=== PATIENT | female | born 1955 | race Caucasian/White ===

== ENCOUNTER 2016-07-23 19:20 | Emergency (ER) | payer OTHER ==
[~2016-07-23] VITALS: Ht 165.1 cm; Wt 64.0 kg
[~2016-07-23 19:20] MED LIST: NO DAILY MEDS; PROP40TA7 PO
--- OUTSIDE RECORDS SUMMARY | 2016-07-23 19:23 | XMS REPORT | Continuity of Care Document ---
Author Author [facility] Organization [facility] Address Unknown Phone Unavailable Care Team Providers Care Binder Operator Name Role Phone DAYANA QUINTERO MD Primary Care Physician [phone] Insurance Providers Payer Name Policy Number Subscriber Name Relationship [employer] [id number] Terrance Pak 19 Self Advance Directives Directive Response Recorded Date/Time Advanced Directives Type None 10/17/13 8:00am Ordered Resuscitation Status Full Code 10/17/13 6:17am Resuscitation Documents on File No 10/17/13 8:00am Chief Complaint and Reason for Visit Chief Complaint DEHDRATION,UTI,N/V Reason for Visit UTI (urinary tract infection) Vomiting Dehydration Bandemia Sepsis Problems Medical Problems Problem Onset Date Status UTI (urinary tract infection) Unknown Active Vomiting Unknown Active Dehydration Unknown Active Bandemia Unknown Active Sepsis Unknown Active Medications Medication Dose Route Sig Days/Qty Instructions Order Date Discontinued Date Status Multivitamins 1 Tab PO DAILY 05/10/08 Active Ciprofloxacin Hcl 500 Mg PO TWICE A DAY 14 Qty 10/18/13 Active Promethazine Hcl 25 Mg PO Every 6 Hours PRN NAUSEA 20 Qty 10/18/13 Active Social History Social History Problem Response Recorded Date/Time Smoking Status Never smoker 10/17/2013 8:01am Chewing Tobacco Status No 10/17/2013 3:32am Hx Substance Use No 10/17/2013 3:32am Hx Alcohol Use Y WEEKENDS TO RELAX 10/17/2013 3:32am Has the pt used tobacco in the last 12 months No 10/17/2013 8:01am Hospital Discharge Instructions Instructions: Care Instructions: Reason for Hospitalization: Sepsis Syndrome I was in the hospital because (patient own words): "UTI" Discharge Diet: Clay diet, increase as able; plenty of fluids Discharge Activity: Increase as tolerated Return to work on 10-26-13 Follow Up Appointments: Dr Quintero this week Condition at time of discharge: Good Care Plan Discharge Patient: Goal: Medication compliance Patient Instructions: see patient instructions PERCOCET 5/325MG 1-2 TABS BY MOUTH EVERY FOUR HOURS PRN PAIN, DISP #30 URINARY BLADDER CATHETERS(STRAIGHT/NON LATEX)#50 LEVAQUIN 500MG ONE BY MOUTH DAILY TIMES FIVE DAYS, DISP#5 SCRIPTS NOT CALLED TO PHARMACY-SENT HOME WITH PATIENT Condition at time of discharge: Good Care Plan Discharge Patient: Goal: Pain is contolled Understand discharge plan Patient Instructions: see patient instructions Care Plan Discharge Patient: Goal: Understand discharge plan Patient Instructions: see patient instructions Problem: see problem list Plan of Care Discharge Date 10/18/13 1:55pm Disposition 01 DISCHARGED HOME, SELF-CARE Instructions/Education Provided DI for Urinary Tract Infection (UTI) DI for Sepsis -- Adult Prescriptions See Medications Section Functional Status Query Response Date Recorded Physical Hygiene Self October 18, 2013 1:27pm Disabilities None October 18, 2013 1:27pm Devices Used None October 18, 2013 1:27pm Dressing Self October 18, 2013 1:27pm Ambulation Self October 18, 2013 1:27pm Diet Self October 18, 2013 1:27pm Mental Status Alert Oriented October 18, 2013 1:27pm Disabilities None October 18, 2013 1:27pm Devices Used None October 18, 2013 1:27pm Physical Hygiene Self October 18, 2013 1:27pm Dressing Self October 18, 2013 1:27pm Ambulation Self October 18, 2013 1:27pm Diet Self October 18, 2013 1:27pm Allergies, Adverse Reactions, Alerts Allergen Type Severity Reaction Status Last Updated No Known Drug Allergies Allergy Unknown Active 10/17/13 Immunizations Name Given Type Hx Influenza Vaccination Y FEB 2013 Historical Hx Pneumococcal Vaccination No Historical Hx Influenza Vaccination Y FEB 2013 Historical Vital Signs Acute Vital Signs Vital Response Date/Time Temperature (Fahrenheit) 99.7 deg F (96.8 - 99.1) Temperature (Calculated Celsius) 37.09380 degrees C (36.0 - 37.3) Temperature Source Oral Pulse Rate (adult) 95 bpm (60 - 100) Respiratory Rate 20 breaths/min (10 - 20) O2 Sat by Pulse Oximetry 98 % (90 - 100) Blood Pressure 165/82 mm Hg Blood Pressure Source Automatic Cuff Height 5 ft 7 in Weight 147 lb Body Mass Index 23.0 kg/m^2 Results Test Source Date Result Interp. Ref. Range Comments Alanine Aminotransferase (ALT/SGPT) October 18, 2013 5:37am 63 U/L H 9-52 Albumin October 18, 2013 5:37am 3.4 G/DL L 3.5-5.0 Albumin/Globulin Ratio October 18, 2013 5:37am 1.1 RATIO N 1.1-2.2 Alkaline Phosphatase October 18, 2013 5:37am 141 U/L H 38-126 Amylase Level October 17, 2013 4:40am 62 U/L N 30-110 Anion Gap October 18, 2013 5:37am 10 MEQ/L N 5-15 Aspartate Amino Transf (AST/SGOT) October 18, 2013 5:37am 50 U/L H 14-36 BUN/Creatinine Ratio October 18, 2013 5:37am 7 RATIO N 6-26 Band Neutrophils # October 17, 2013 4:40am 4.5 T/MM3 - Band Neutrophils % October 17, 2013 4:40am 33.0 % DH 0-6 Basophils # (Auto) October 18, 2013 5:37am 0.0 T/MM3 N 0-0.2 Basophils (%) (Auto) October 18, 2013 5:37am 0.2 % N 0-2 Blood Urea Nitrogen October 18, 2013 5:37am 4.0 MG/DL DL 7-17 C. difficile Toxin B Gene (PCR) October 18, 2013 12:45am Negative - If Toxin A is clinically indicated, treat accordingly. Calcium Level October 18, 2013 5:37am 8.8 MG/DL DN 8.4-10.2 Calculated Osmolality October 18, 2013 5:37am 262 MOSM/KG N 261-280 Carbon Dioxide Level October 18, 2013 5:37am 19 MEQ/L L 22-30 Chemistry Specimen Hemolysis October 18, 2013 5:37am < 15 0-25 0-25: No Hemolysis.26-70: Slight Hemolysis - can falsely elevate K and Urine Protein. 71-285: Moderate Hemolysis - can falsely elevate K, Troponin I, CA 19-9, PTH, CSF GLucose, and Urine Protein, and can falsely decrease Phenytoin. 286-999: Gross Hemolysis - can falsely elevate K, Troponin I, CA 19-9, PTH, CSF Glucose, and Urine Protine, and can falsely decrease Phenytoin. Recommend specimen recollection. Chloride Level October 18, 2013 5:37am 108 MEQ/L H 98-107 Creatinine October 18, 2013 5:37am 0.6 MG/DL L 0.7-1.2 Differential Total Cells Counted May 10, 2008 5:20pm 100 % - Eosinophils # (Auto) October 18, 2013 5:37am 0.1 T/MM3 N 0-0.5 Eosinophils (%) (Auto) October 18, 2013 5:37am 0.9 % N 0-4 Globulin October 18, 2013 5:37am 3.0 G/DL N 2.4-3.6 Glomerular Filtration Rate Calc October 18, 2013 5:37am 103 - Glucose Level October 18, 2013 5:37am 116 MG/DL H 65-110 Hematocrit October 18, 2013 5:37am 34.3 % L 36-46 Hemoglobin October 18, 2013 5:37am 11.1 GM/DL DL 12-16 Hypochromasia May 10, 2008 5:20pm 2+ - Icterus Index October 18, 2013 5:37am < 2 0-7 Immature Granulocyte # (Auto) October 18, 2013 5:37am 0.02 T/MM3 N 0.00- 0.03 Immature Granulocyte % (Auto) October 18, 2013 5:37am 0.2 % N 0.0-0.5 Lab Scanned Report September 05, 2011 8:00pm LAB TEST FORM REQUEST [id number] - Lipase October 17, 2013 4:40am 44 U/L N 23-300 Lymphocytes # (Auto) October 18, 2013 5:37am 1.3 T/MM3 N 1-4.8 Lymphocytes # (Manual) October 17, 2013 4:40am 0.4 T/MM3 L 1-4.8 Lymphocytes % (Manual) October 17, 2013 4:40am 3.0 % L 23-45 Lymphocytes (%) (Auto) October 18, 2013 5:37am 15.4 % L 23-45 Mean Corpuscular Hemoglobin October 18, 2013 5:37am 32.0 UUG N 26-34 Mean Corpuscular Hemoglobin Concent October 18, 2013 5:37am 32.4 GM/DL N 31 -37 Mean Corpuscular Volume October 18, 2013 5:37am 98.8 UM3 N 80-100 Mean Platelet Volume October 18, 2013 5:37am 10.3 UM3 N 9.4-12.4 Monocytes # (Auto) October 18, 2013 5:37am 0.9 T/MM3 H 0-0.8 Monocytes # (Manual) May 10, 2008 5:20pm 0.5 T/MM3 N 0-0.8 Monocytes % (Manual) May 10, 2008 5:20pm 4.0 % N 0-9.0 Monocytes (%) (Auto) October 18, 2013 5:37am 10.4 % H 0-9.0 Neutrophils # (Auto) October 18, 2013 5:37am 5.9 T/MM3 N 1.8-7.7 Neutrophils # (Manual) October 17, 2013 4:40am 8.6 T/MM3 H 1.8-7.7 Neutrophils % (Manual) October 17, 2013 4:40am 64.0 % N 33-66 Neutrophils (%) (Auto) October 18, 2013 5:37am 72.9 % H 33-66 Platelet Count October 18, 2013 5:37am 148 T/MM3 N 130-400 Potassium Level October 18, 2013 5:37am 3.9 MEQ/L N 3.6-5 Procalcitonin October 18, 2013 5:37am 42.08 NG/ML PH - PCT </=0.5 ng/mL - sepsis not likely;PCT >0.5 and </=2 ng/mL - sepsis possible; PCT >2 ng/mL - sepsis likely; PCT >/=10 ng/mL - systemic inflammatory response - sepsis or septic shock highly indicated. RDW Standard Deviation October 18, 2013 5:37am 45.4 FL N 36.9-50.2 Red Blood Count October 18, 2013 5:37am 3.47 M/MM3 L 4.00-5.20 Sodium Level October 18, 2013 5:37am 137 MEQ/L N 134-144 Stool for White Cells October 18, 2013 12:45am Positive - Has specimen been collected/obtained? Y Total Bilirubin October 18, 2013 5:37am 0.40 MG/DL N 0.20-1.30 Total Protein October 18, 2013 5:37am 6.4 G/DL N 6.3-8.2 Turbidity October 18, 2013 5:37am < 20 0-20 Urine Bacteria October 17, 2013 4:25am 3+ H - Has specimen been collected/ obtained? Y Urine Bilirubin October 17, 2013 4:25am Negative - Has specimen been collected/obtained? Y Urine Blood October 17, 2013 4:25am 1+ H - Has specimen been collected/ obtained? Y Urine Collection Type October 17, 2013 4:25am Voided-not cc-midstr - Has specimen been collected/obtained? Y Urine Color October 17, 2013 4:25am Yellow - Has specimen been collected /obtained? Y Urine Culture Indicated October 17, 2013 4:25am Cult reflexed &setup - Has specimen been collected/obtained? Y Urine Glucose (UA) October 17, 2013 4:25am Negative - Has specimen been collected/obtained? Y Urine Ketones October 17, 2013 4:25am 1+ H - Has specimen been collected/ obtained? Y Urine Leukocyte Esterase October 17, 2013 4:25am 1+ H - Has specimen been collected/obtained? Y Urine Nitrite October 17, 2013 4:25am Positive H - Has specimen been collected/obtained? Y Urine Protein October 17, 2013 4:25am Trace H - Has specimen been collected/obtained? Y Urine RBC October 17, 2013 4:25am 3-5 /HPF H - Has specimen been collected /obtained? Y Urine Specific [place] October 17, 2013 4:25am 1.010 L - Has specimen been collected/obtained? Y Urine Squamous Epithelial Cells October 17, 2013 4:25am 0-5 - Has specimen been collected/obtained? Y Urine Turbidity October 17, 2013 4:25am Sl cloudy - Has specimen been collected/obtained? Y Urine Urobilinogen October 17, 2013 4:25am 0.2 EU/DL - Has specimen been collected/obtained? Y Urine WBC October 17, 2013 4:25am 10-20 /HPF H - Has specimen been collected/obtained? Y Urine pH October 17, 2013 4:25am 6.5 - Has specimen been collected/ obtained? Y Venous Blood Lactate October 17, 2013 10:37am 2.4 MMOL/L H 0.6-2.2 White Blood Count October 18, 2013 5:37am 8.2 T/MM3 N 4.5-11.0 Blood Culture Blood October 17, 2013 10:37am NO GROWTH AFTER 4 DAYS Urine Culture Urine, Voided-Not Cc-Midstream October 17, 2013 4:55am Escherichia Coli Procedures No known history of procedures. Encounters Encounter Location Date/Time Discharged Inpatient [facility] 10/17/13 6:17am Recent Diagnosis UTI (urinary tract infection) Vomiting Dehydration Bandemia Sepsis
--- OUTSIDE RECORDS SUMMARY | 2016-07-23 19:23 | XMS REPORT | Continuity of Care Document ---
Author Author [facility] Organization [facility] Address Unknown Phone Unavailable Support Name Relationship Address Phone YORDAN MIRZA MD Caregiver [address] [place] [address] [place] [phone] Unavailable FRANCINE PAK Next Of Kin [address] [phone] Insurance Providers Guarantor Terrance Pak Address [address] [place] [id number] Email DENIED/ NO TO PORTAL Payer Self Pay Subscriber's Name Terrance Pak Relationship 18 Self Advance Directives Directive Response Recorded Date/Time Advanced Directives Type None 10/17/13 8:00am Dr Mosher Resuscitation Status Full Code 10/17/13 6:17am Resuscitation Documents on File No 10/17/13 8:00am Chief Complaint and Reason for Visit Chief Complaint General Reason for Visit Tachycardia [id number] Hypertension Problems Active Problems Medical Problem Onset Date Status Bandemia Unknown Acute Dehydration Unknown Acute Sepsis Unknown Acute UTI (urinary tract infection) Unknown Acute Vomiting Unknown Acute Past Problems Medical Problem Onset Date Hypertension Unknown Shakiness Unknown Tachycardia Unknown Medications Current Home Medications Medication Dose Units Route Directions Days Qty Instructions Start Date No Daily Meds 01/23/16 Propranolol Hcl 40 Mg Tablet 1 Tab Oral Twice A Day 60 Tablet 01/22 Social History Social History Problem Response Recorded Date/Time Onset Date Status Chewing Tobacco Status No 10/17/2013 3:32am Not Applicable Not Applicable Hx Substance Use No 01/23/2016 9:08am Not Applicable Not Applicable Hx Alcohol Use Y WEEKENDS TO RELAX 01/23/2016 9:08am Not Applicable Not Applicable Has the pt used tobacco in the last 12 months No 10/17/2013 8:01am Not Applicable Not Applicable Tobacco Usage none 10/17/2013 9:12am Not Applicable Not Applicable Query Response Start Date Stop Date Smoking Status Never smoker Hospital Discharge Instructions No hospital discharge instructions. Plan of Care Discharge Date 01/23/16 1:05pm Disposition 01 DISCHARGED HOME, SELF-CARE Condition at Discharge Stable Instructions/Education Provided DI for High Blood Pressure Prescriptions See Medication Section Care Plan and Goals Physician Care Plan Problem: High blood pressure shakiness tachycardia Goal: Follow up with primary care provider Instructions: Take medications and follow care plan as discussed/written Functional Status No functional status results. Allergies, Adverse Reactions, Alerts Allergen Type Severity Reaction Status Last Updated No Known Drug Allergies Allergy Unknown Active 01/23/16 Immunizations Query Response on File Recorded Date/Time Hx Influenza Vaccination Y FEB 2013 10/17/13 8:01am Hx Pneumococcal Vaccination No 10/17/13 8:01am Hx Influenza Vaccination Y FEB 2013 10/17/13 8:01am Vital Signs Acute Vital Signs Vital Response Date/Time Temperature (Fahrenheit) 98.5 deg F (96.8 - 99.1) 01/23/2016 1:05pm Temperature (Calculated Celsius) 36.75361 degrees C (36.0 - 37.3) 01/23/2016 1:05pm Pulse Rate (adult) 98 bpm (60 - 100) 01/23/2016 1:05pm Respiratory Rate 20 breaths/min (10 - 20) 01/23/2016 1:05pm O2 Sat by Pulse Oximetry 99 % (90 - 100) 01/23/2016 1:05pm Blood Pressure 184/84 mm Hg 01/23/2016 1:05pm Height (Feet) 5 feet 01/23/2016 8:47am Height (Inches) 6.00 inches 01/23/2016 8:47am Weight (Kilograms) 63.200 kg 01/23/2016 8:47am Body Mass Index (BMI) 22.0 01/23/2016 8:47am Results Laboratory Results Test Name Result Units Flags Reference Collection Date/Time Result Date/ Time Comments White Blood Count 11.0 T/MM3 4.5-11.0 01/23/2016 10:32am 01/23/2016 10: 52am Red Blood Count 3.87 M/MM3 L 4.00-5.20 01/23/2016 10:32am 01/23/2016 10: 52am Hemoglobin 12.7 GM/DL 12-16 01/23/2016 10:32am 01/23/2016 10:52am Hematocrit 38.1 % 36-46 01/23/2016 10:32am 01/23/2016 10:52am Mean Corpuscular Volume 98.4 UM3 80-100 01/23/2016 10:32am 01/23/2016 10:52am Mean Corpuscular Hemoglobin 32.8 UUG 26-34 01/23/2016 10:32am 2015 10:52am Mean Corpuscular Hemoglobin Concent 33.3 GM/DL 31-37 01/23/2016 10:32am 01/23/2016 10:52am RDW Standard Deviation 48.5 FL 36.9-50.2 01/23/2016 10:32am 01/23/2016 10:52am Platelet Count 170 T/MM3 130-400 01/23/2016 10:32am 01/23/2016 10:52am Mean Platelet Volume 9.8 UM3 9.4-12.4 01/23/2016 10:32am 01/23/2016 10: 52am Neutrophils (%) (Auto) 76.4 % H 33-66 01/23/2016 10:32am 01/23/2016 10: 52am Lymphocytes (%) (Auto) 13.7 % L 23-45 01/23/2016 10:32am 01/23/2016 10: 52am Monocytes (%) (Auto) 9.1 % H 0-9.0 01/23/2016 10:32am 01/23/2016 10: 52am Eosinophils (%) (Auto) 0.3 % 0-4 01/23/2016 10:32am 01/23/2016 10:52am Basophils (%) (Auto) 0.3 % 0-2 01/23/2016 10:32am 01/23/2016 10:52am Immature Granulocyte % (Auto) 0.2 % 0.0-0.5 01/23/2016 10:32am 2015 10:52am Absolute Neutrophils (auto) 8.4 T/MM3 H 1.8-7.7 01/23/2016 10:32am 01/22 10:52am Absolute Lymphocytes (auto) 1.5 T/MM3 1-4.8 01/23/2016 10:32am 2015 10:52am Absolute Monocytes (auto) 1.0 T/MM3 H 0-0.8 01/23/2016 10:32am 2015 10:52am Absolute Eosinophils (auto) 0.0 T/MM3 0-0.5 01/23/2016 10:32am 2015 10:52am Absolute Basophils (auto) 0.0 T/MM3 0-0.2 01/23/2016 10:32am 2015 10:52am Absolute Immature Granulocyte (auto 0.02 T/MM3 0.00-0.03 01/23/2016 10: 32am 01/23/2016 10:52am D-Dimer < 150 NG/ML 0-230 01/23/2016 10:32am 01/23/2016 11:13am <230 NG/ML D-DU=PRESUMPTIVE NEGATIVE FOR PE OR DVT >230 NG/ML D-DU=ADDITIONAL EVAL FOR PE OR DVT RECOMMENDED Icterus Index < 2 0-7 01/23/2016 10:32am 01/23/2016 11:02am Chemistry Specimen Hemolysis < 15 0-25 01/23/2016 10:32am 01/23/2016 11:02am 0-25: Specimen Exhibited No Hemolysis. Turbidity < 20 0-20 01/23/2016 10:32am 01/23/2016 11:02am Sodium Level 142 MEQ/L 134-144 01/23/2016 10:32am 01/23/2016 11:02am Potassium Level 4.3 MEQ/L 3.6-5 01/23/2016 10:32am 01/23/2016 11:02am Chloride Level 106 MEQ/L 98-107 01/23/2016 10:32am 01/23/2016 11:02am Carbon Dioxide Level 24 MEQ/L 22-30 01/23/2016 10:32am 01/23/2016 11: 02am Anion Gap 12 MEQ/L 5-15 01/23/2016 10:32am 01/23/2016 11:02am Blood Urea Nitrogen 8.0 MG/DL 7-17 01/23/2016 10:32am 01/23/2016 11: 02am Creatinine 0.6 MG/DL L 0.7-1.2 01/23/2016 10:32am 01/23/2016 11:02am BUN/Creatinine Ratio 13 RATIO 6-26 01/23/2016 10:32am 01/23/2016 11: 02am Glomerular Filtration Rate Calc 102 01/23/2016 10:32am 01/23/2016 11:02am Glucose Level 110 MG/DL 65-110 01/23/2016 10:32am 01/23/2016 11:02am Calculated Osmolality 272 MOSM/KG 261-280 01/23/2016 10:32am 2015 11:02am Calcium Level 9.9 MG/DL 8.4-10.2 01/23/2016 10:32am 01/23/2016 11:02am Troponin I < 0.012 ng/ml 0-0.12 01/23/2016 10:32am 01/23/2016 11:13am Troponin values with a difference of 55% increase from orginal troponin value represent a true biological DELTA value. (%increase Calc=Orginal Troponin value, divided by subsequent Troponin value, multiplied by 100) Urine Collection Type VOIDED-NOT CC-MIDSTR 01/23/2016 10:32am 01/22 10:55am Urine Color YELLOW YELLOW 01/23/2016 10:32am 01/23/2016 10:55am Urine Turbidity CLEAR CLEAR 01/23/2016 10:32am 01/23/2016 10:55am Urine Specific [place] 1.010 L 1.015-1.025 01/23/2016 10:32am 2015 10:55am Urine pH 6.0 5.0-8.0 01/23/2016 10:32am 01/23/2016 10:55am Urine Leukocyte Esterase TRACE A NEGATIVE 01/23/2016 10:32am 2015 10:55am Urine Nitrite NEGATIVE NEGATIVE 01/23/2016 10:32am 01/23/2016 10: 55am Urine Protein NEGATIVE NEGATIVE 01/23/2016 10:32am 01/23/2016 10: 55am Urine Glucose (UA) NEGATIVE NEGATIVE 01/23/2016 10:32am 01/23/2016 10 :55am Urine Ketones NEGATIVE NEGATIVE 01/23/2016 10:32am 01/23/2016 10: 55am Urine Urobilinogen 0.2 EU/DL NORMAL 01/23/2016 10:32am 01/23/2016 10: 55am Urine Bilirubin NEGATIVE NEGATIVE 01/23/2016 10:32am 01/23/2016 10: 55am Urine Blood 1+ A NEGATIVE 01/23/2016 10:32am 01/23/2016 10:55am Urine WBC 0-1 /HPF 0-5 01/23/2016 10:32am 01/23/2016 11:21am Urine RBC 0-1 /HPF 0-3 01/23/2016 10:32am 01/23/2016 11:21am Urine Squamous Epithelial Cells 0-5 01/23/2016 10:32am 01/23/2016 11:21am Urine Bacteria NONE SEEN NEGATIVE 01/23/2016 10:32am 01/23/2016 11: 21am Urine Culture Indicated CULT NOT INDICATED 01/23/2016 10:32am 01/22 11:21am Name: TERRACNE PAK Unit #: [id number] : [id number] Sex: F Admit Date: Loc / Svc: ED Discharge Date: DIAGNOSTIC IMAGING REPORT Report #: [id number] [facility] [place] INDICATION: ITS.REASON: hypertensive, tachycardic PROCEDURE: CHEST 2-VIEWS UPRIGHT (PA \T\ LAT) Encounter: Initial COMPARISON: Acute abdominal series, 10/17/2013 FINDINGS: The lungs are clear without evidence of focal abnormal airspace opacity. There is no pleural effusion or pneumothorax. Monitor leads overlie the chest The heart size, mediastinal contours and pulmonary vascularity are within normal limits. There is no significant skeletal abnormality. IMPRESSION: No acute cardiopulmonary disease. . Procedures No known history of procedures. Encounters Encounter Location Arrival/Admit Date Discharge/Depart Date Attending Provider Departed Emergency Room [facility] 01/23/16 8:46am 01/23/16 1: 05pm YORDAN MIRZA MD Recent Diagnosis
--- OUTSIDE RECORDS SUMMARY | 2016-07-23 19:23 | XMS REPORT | Referral Summary ---
Author Author [facility] Organization [facility] Address Unknown Phone Unavailable Care Team Providers Care Livestock Broker Name Role Phone Kaiden Rice Primary Care Physician [phone] Encounter VC Date(s): 03/01/16 - 03/01/16 [facility] [address] [place] [address]- Discharge Diagnosis: Benign essential HTN Discharge Disposition: 01-Home or Self Care Attending Physician: Alejandro Rice MD Admitting Physician: Alejandro Rice MD Vital Signs Most recent to 1 oldest [Reference Range]: Temperature Tympanic 36.7 degC [36.6-38.1 degC] (03/01/16 11:25 AM) Peripheral Pulse 100 bpm Rate [60-100 bpm] (03/01/16 11:25 AM) Respiratory Rate 16 br/min [14-20 br/min] (03/01/16 11:25 AM) Blood Pressure 232/124 mmHg [90-140/60-90 mmHg] *HI* (03/01/16 11:25 AM) Problem List No Known Problems Allergies, Adverse Reactions, Alerts No Known Medication Allergies Medications metoprolol succinate 100 mg oral tablet, extended release 100 mg 1 tabs, Oral, Daily, # 30 tabs, 6 Refill(s), Pharmacy: [facility] # [id number] Start Date: 03/01/16 Status: Ordered multivitamins oral tablet 1 tabs, Oral, Daily, # 30 tabs, 0 Refill(s) Start Date: 10/22/13 Status: Ordered Tylenol Regular Strength 325 mg oral tablet 325 mg 1 tabs, Oral, q4hr, as needed Start Date: 12/08/15 Status: Ordered Results No data available for this section Immunizations No data available for this section Procedures No data available for this section Social History Social History Type Response Smoking Status Never smoker Assessment and Plan Extracted from: Title: Office Visit Note Author: Alejandro Rice MD Date: 03/01/16 Assessment/Plan 1.Benign essential HTN Laboratoriesstudies, chest x-ray, EKG were all reviewed from the emergency room. Unremarkable. I've elected to start her on metoprolol succinate 100 mg dailyrecheck in 1 week. Take medicine if she picks them up today. If she has any trouble with medication prior to next week she'll let us know. Ordered: Office Visit Level 2 New [id number]
--- OUTSIDE RECORDS SUMMARY | 2016-07-23 19:23 | XMS REPORT | Referral Summary ---
Author Author [facility] Organization [facility] Address Unknown Phone Unavailable Care Team Providers Care Financial Assistance Advisor Name Role Phone Kaiden Rice Primary Care Physician [phone] Encounter VC Date(s): 03/26/16 - 03/26/16 [facility] [address] [place] [address]- Discharge Diagnosis: Gastroenteritis Discharge Diagnosis: Benign essential HTN Discharge Disposition: 01-Home or Self Care Attending Physician: Alejandro Rice MD Admitting Physician: Alejandro Rice MD Vital Signs Most recent to 1 oldest [Reference Range]: Temperature Tympanic 38.0 degC [36.6-38.1 degC] (03/26/16 8:07 AM) Peripheral Pulse 102 bpm Rate [60-100 bpm] *HI* (03/26/16 8:07 AM) Respiratory Rate 98 br/min [14-20 br/min] *HI* (03/26/16 8:07 AM) Blood Pressure 182/92 mmHg [90-140/60-90 mmHg] *HI* (03/26/16 8:07 AM) Problem List Condition Effective Dates Status Health Status Informant Benign essential Active HTN(Confirmed) Allergies, Adverse Reactions, Alerts No Known Medication Allergies Medications losartan 100 mg oral tablet 100 mg 1 tabs, Oral, Daily, # 30 tabs, 6 Refill(s), Pharmacy: [facility] # [id number], 1 tabs Oral Daily Start Date: 03/26/16 Status: Ordered metoprolol succinate 100 mg oral tablet, extended release 100 mg 1 tabs, Oral, Daily, # 30 tabs, 6 Refill(s), Pharmacy: [facility] # [id number] Start Date: 03/01/16 Status: Ordered multivitamins oral [...] Visit Note Author: Alejandro Rice MD Date: 03/26/16 Assessment/Plan 1.Benign essential HTN I've recommended adding losartan 100 mg daily. Continue metoprolol at its current dosage. I actually asked her to waitto start taking this until she's feeling better hopefully later this week. If she has any problems with thenew medication or further questions or concerns she'll let us know. Follow-up in one month. Ordered: Office Visit Level 3 Est 58032 2.Gastroenteritis This appears to beviral gastroenteritis. I've recommended symptomatic treatment. Continue to push clear liquids and advance diet as tolerated. Avoid dairy products over the next few days. If symptoms persist or worsen or further problems develop follow-up. Ordered: Office Visit Level 3 Est 45858
--- OUTSIDE RECORDS SUMMARY | 2016-07-23 19:23 | XMS REPORT | Referral Summary ---
Author Author [facility] Organization [facility] Address Unknown Phone Unavailable Care Team Providers Care Respiratory Director Name Role Phone Kaiden Rice Primary Care Physician [phone] Encounter Date(s): 03/08/16 - 03/08/16 [facility] [address] [place] [id number]- Discharge Diagnosis: Benign essential HTN Discharge Disposition: 01-Home or Self Care Attending Physician: Alejandro Rice MD Admitting Physician: Alejandro Rice MD Vital Signs Most recent to 1 oldest [Reference Range]: Temperature Tympanic 36.0 degC [36.6-38.1 degC] *LOW* (03/08/16 10:30 AM) Respiratory Rate 16 br/min [14-20 br/min] (03/08/16 10:30 AM) Blood Pressure 164/104 mmHg [90-140/60-90 mmHg] *HI* (03/08/16 10:30 AM) Problem List Condition Effective Dates Status Health Status Informant Benign essential Active HTN(Confirmed) Allergies, Adverse Reactions, Alerts No Known Medication Allergies Medications metoprolol succinate 100 mg oral tablet, extended release 100 mg 1 tabs, Oral, Daily, # 30 tabs, 6 Refill(s), Pharmacy: [facility] # [id number] Start Date: 03/01/16 Status: Ordered multivitamins oral [...] Visit Note Author: Alejandro Rice MD Date: 03/08/16 Assessment/Plan 1.Benign essential HTN Blood pressure show significant improvement but is still elevated. I suggest we given another couple weeks on the metoprolol. She'll schedule to see me back in 2 weeks. She'll continue the current dosage without change. She does have a way to check her blood pressure at home she' ll check in 2-3 times a week and bring those numbers and in 2 weeks when we see her back. If she has problems before then or further questions or concerns she 'll let us know. Ordered: Office Visit Level 3 Est 67164
[2016-07-23 19:39] VITALS: Ht 165.1 cm; Wt 64.0 kg
--- OUTSIDE RECORDS SUMMARY | 2016-07-23 19:53 | XMS REPORT | Continuity of Care Document ---
Author Author [facility] Organization [facility] Address Unknown Phone Unavailable Care Team Providers Care Software Engineering Associate Manager Name Role Phone DAYANA QUINTERO MD Primary Care Physician [phone] Insurance Providers Payer Name Policy Number Subscriber Name Relationship [employer] [id number] Terrance Pak 19 Self Advance Directives Directive [...] because (patient own words): "UTI" Discharge Diet: [place] diet, increase as able; plenty of fluids [...] F (96.8 - 99.1) Temperature (Calculated Celsius) 37.56966 degrees C (36.0 - 37.3) Temperature Source [...] 05, 2011 8:00pm LAB TEST FORM REQUEST [id number] - Lipase October 17, 2013 4:40am 44 [...] specimen been collected /obtained? Y Urine Specific [place] October 17, 2013 4:25am 1.010 L - [...] procedures. Encounters Encounter Location Date/Time Discharged Inpatient [facility] 10/17/13 6:17am Recent Diagnosis UTI (urinary tract infection) Vomiting Dehydration Bandemia Sepsis
--- NOTE | 2016-07-23 20:05 | ERPDOC ---
Departure Disposition Decision Date: Jul 23, 2016 Disposition Decision Time: 22:34 Disposition: 01 DISCHARGED HOME, SELF-CARE Impression Impression Impression: Primary Impression: Malignant hypertension Additional Impression: Renal scarring Severity: Severe Condition: Improved Seen By: Physician only Referrals: DAYANA QUINTERO MD 1 Day Patient Instructions: Hypertension (ED) Problems/Meds/Labs Reviewed?: Yes Medications reviewed and manag: Yes Additional Instructions: You have had severe-range blood pressures. We found some kidney scarring tonight. Your electrolytes (sodium, potassium, etc) were off, but that is very common when starting to take HCTZ. Take your medications as prescribed and call Dr. Mcmillan's office in the AM for a follow up appointment LISANDRO. Follow up care ordered?: Yes Mental Status: Alert, Oriented HPI - General Medical General Chief Complaint: Hypertension Stated Complaint: HIGH BLOOD PRESSURE Time Seen by Provider: 19:28 Source: patient, family Exam Limitations: no limitations HPI - General Medical Initial Comments 60yo woman presents to the ER with poorly-controlled HTN. Pt has had difficulty controlling her blood pressure for the last 4+ months. She has seen her doctor for this and is now taking metoprolol, losaartan, HCTZ, and omeprazole. Pt called her physician earlier today and was told to take another metoprolol and present to the ER if her HTN did not improve. Occurred At: home Onset: Rapid, Getting worse Duration: other Associated Symptoms: headaches, other (dizziness, blurry vision) Hx of Similar Symptoms: Yes Allergies: Coded Allergies: No Known Drug Allergies (Verified Allergy, Unknown, 07/23/16) Past History Past Medical History Metabolic: hypertension Surgical History General: gallbladder, tonsils Family History Family PMH: FOUND: CAD, [place] Vaccines Hx Influenza Vaccination: Yes (FEB 2013) Hx Pneumococcal Vaccination: No Social History Substance Use Type: does not use Alcohol Intake: none Sexuality: male partner Review of Systems Eyes Vision: blurring Cardiovascular Comments HTN Neurological General: headache, vertigo All other Systems All Other Systems: Reviewed and Negative Physical Exam General General Nourishment: well nourished, well developed, appears stated age, no acute distress, adult General Body Habitus: well groomed Vitals and Pain First Documented Vital Signs Date Time Temp Pulse Resp B/P Pulse Ox O2 Delivery O2 Flow Rate FiO2 07/23/16 19:39 98.6 82 16 217/103 99 Room Air Weight: Kilograms: Height (feet): 5 Height (inches): 6.00 Triage Pain Scale: RN VS reviewed by Provider: Yes Normal Exams: Head: Normocephalic w/o trauma Eyes: Pupils are PERRLA w/ EOMI, No scleral icterus, irritation ENMT: No facial trauma, nasal exudates, pharyngeal erythema Neck: Full range of motion, without adenopathy, JVD Chest/Resp: Clear all adorno, with good airflow, and symmetry bilaterally CV: Regular rate and rhythm, without murmur or gallop, Pulses 2+ all extremities Abdomen: Bowel sounds positive, soft, non-tender, non-distended Lymphatic: No lymphadenopathy Musculoskeletal: No tenderness, or deformity noted, good range of motion Integumentary: No rashes, hives, or bruising noted Neurologic: Patient is alert, and oriented Psychiatric: Patient exhibits, appropriate attention Progress Results/Orders Orders Procedure Category Date Status Time Oxygen Administration EDM 07/23/16 Transmitted 19:58 Iv Lock (Ed Only) EDM 07/23/16 Transmitted 19:58 Bgm (Ed) EDM 07/23/16 Transmitted 19:58 Nothing By Mouth (Ed EDM 07/23/16 Transmitted Only) 19:58 Cbc W/Auto LAB 07/23/16 Complete Diff-Reflex Manual 19:58 Cmp - Comprehensive LAB 07/23/16 Complete Metabolic 19:58 Troponin I W LAB 07/23/16 Complete Hemolysis Index 19:58 INR LAB 07/23/16 Complete 19:58 PTT LAB 07/23/16 Complete 19:58 LAB 07/23/16 Complete Qualitative, Serum 19:58 EKG EKG 07/23/16 Taken 19:58 Ct Head W/O Contrast CT 07/23/16 Taken 19:58 Elevate Hob AVA 07/23/16 In Process 19:58 Ua, Dip Wreflex LAB 07/23/16 Complete Microsc & Quality Compliance Consultant 19:58 Cta Abdomen W/Wo CT 07/23/16 Taken Contrast 19:58 Hydralazine PHA 07/23/16 Complete (Apresoline) 20:15 Iohexol (Omnipaque) PHA 07/23/16 Complete 20:35 Normal Saline (Ns) PHA 07/23/16 Complete 20:35 Saline Flush (Iv PHA 07/23/16 Complete Flush) 20:35 Hydralazine PHA 07/23/16 Complete (Apresoline) 21:30 Lab Results Laboratory Tests Test 07/23/16 20:13 07/23/16 20:17 07/23/16 21:07 White Blood Count 7.6T/MM3 Red Blood Count 3.56M/MM3 Hemoglobin 11.9GM/DL Hematocrit 34.1% Mean Corpuscular Volume 95.8UM3 Mean Corpuscular Hemoglobin 33.4UUG Mean Corpuscular Hemoglobin Concent 34.9GM/DL RDW Standard Deviation 37.9FL Platelet Count 144T/MM3 Mean Platelet Volume 9.7UM3 Immature Granulocyte % (Auto) 0.1% Neutrophils (%) (Auto) 65.1% Lymphocytes (%) (Auto) 23.2% Monocytes (%) (Auto) 10.8% Eosinophils (%) (Auto) 0.5% Basophils (%) (Auto) 0.3% Absolute Immature Granulocyte (auto 0.01T/MM3 Absolute Neutrophils (auto) 5.0T/MM3 Absolute Lymphocytes (auto) 1.8T/MM3 Absolute Monocytes (auto) 0.8T/MM3 Absolute Eosinophils (auto) 0.0T/MM3 Absolute Basophils (auto) 0.0T/MM3 Prothromb Time International Ratio 0.99 Activated Partial Thromboplast Time 26.9SEC Turbidity < 20 Sodium Level 130MEQ/L Potassium Level 3.5MEQ/L Chloride Level 97MEQ/L Carbon Dioxide Level 18MEQ/L Anion Gap 15MEQ/L Blood Urea Nitrogen 6.0MG/DL Creatinine 0.6MG/DL Glomerular Filtration Rate Calc 102 BUN/Creatinine Ratio 10RATIO Glucose Level 120MG/DL Calculated Osmolality 250MOSM/KG Calcium Level 10.1MG/DL Total Bilirubin 1.90MG/DL Icterus Index < 2 Aspartate Amino Transf (AST/SGOT) 131U/L Alanine Aminotransferase (ALT/SGPT) 73U/L Alkaline Phosphatase 158U/L Troponin I < 0.012ng/ml Total Protein 8.1G/DL Albumin 4.6G/DL Globulin 3.5G/DL Albumin/Globulin Ratio 1.3RATIO Human Chorionic Gonadotropin, Qual Negative Chemistry Specimen Hemolysis < 15 Glucometer 97mg/dL Urine Collection Type Cleancatch-midstream Urine Color Yellow Urine Turbidity Clear Urine pH 6.0 Urine Specific [place] <=1.005 Urine Protein Negative Urine Glucose (UA) Negative Urine Ketones Negative Urine Blood Negative Urine Nitrite Negative Urine Bilirubin Negative Urine Urobilinogen 0.2EU/DL Urine Leukocyte Esterase Negative Urinalysis Comment Microscopic not ind. Medications Current ED Medications Hydralazine HCl (Apresoline) 10 mg O ONCE IV Last administered on 07/23/16 20: 07; Start 07/23/16 at 20:15; Stop 07/23/16 at 20:16; Status DC Iohexol 1 bottle 1 bottle STK-MED ONCE .ROUTE ; Start 07/23/16 at 20:35; Stop 07/23/16 at 20:36; Status DC Sodium Chloride (NS) 100 ml @ As Directed STK-MED ONCE .ROUTE ; Start 07/23/16 at 20:35; Stop 07/23/16 at 20:36; Status DC Sodium Chloride (Iv Flush) 10 ml STK-MED ONCE .ROUTE ; Start 07/23/16 at 20:35; Stop 07/23/16 at 20:36; Status DC Hydralazine HCl (Apresoline) 10 mg O ONCE IV Last administered on 07/23/16 21: 57; Start 07/23/16 at 21:30; Stop 07/23/16 at 21:31; Status DC Progress Progress Discussed findings with pt, including renal scarring. Pt has significant electrolyte disturbances, but it is also her first day taking prilosec and HCTZ. BP is 190s/90s after 10mg hydralazine. Will give a second dose and observe. If BP is more reasonable level, will d/c with f/u with PCM. BP now 150s. Will d/c to home with meds and instructions to f/u with PCM LISANDRO. Pt voices understanding of dx, prognosis, tx, and need for f/u. CT CT #1: CT: Head no contrast Interpretation: Normal, Reviewed Written Report CT #2: CT: Other (CTA abd aorta) Interpretation: Abnormal (Kidney scarring), Reviewed Written Report MICA FONTENOT DO Jul 23, 2016 20:05
[2016-07-23] MEDS ORDERED: METO-279 PO (20:14)
[2016-07-23] MEDS ORDERED: HYDR25TA PO (20:14)
[2016-07-23] MEDS ORDERED: OMEP40CA52 PO (20:14)
[2016-07-23] MEDS ORDERED: LOSA100T44 PO (20:14)
[2016-07-23 20:21] LABS: BASOPHILS % (AUTO) 0.3 % (0-2); EOSINOPHILS % (AUTO) 0.5 % (0-4); HCT - HEMATOCRIT 34.1 % (36-46); HGB - HEMOGLOBIN 11.9 GM/DL (12-16); IMMATURE GRANULOCYTE # (AUTO) 0.01 T/MM3 (0.00-0.03); IMMATURE GRANULOCYTE % (AUTO) 0.1 % (0.0-0.5); LYMPHOCYTES # (AUTO) 1.8 T/MM3 (1-4.8); LYMPHOCYTES % (AUTO) 23.2 % (23-45); MEAN CORPUSCULAR HGB 33.4 UUG (26-34); MEAN CORPUSCULAR HGB CONC(MCHC 34.9 GM/DL (31-37); MEAN CORPUSCULAR VOLUME 95.8 UM3 (80-100); MEAN PLATELET VOLUME 9.7 UM3 (9.4-12.4); MONOCYTES # (AUTO) 0.8 T/MM3 (0-0.8); MONOCYTES % (AUTO) 10.8 % (0-9.0); NEUTROPHILS % (AUTO) 65.1 % (33-66); RED BLOOD COUNT 3.56 M/MM3 (4.00-5.20); WBC - WHITE BLOOD COUNT 7.6 T/MM3 (4.5-11.0)
[2016-07-23 20:28] LABS: INR 0.99 (0.76-1.04); PROTHROMBIN TIME 10.8 SEC (9.31-12.49); PTT 26.9 SEC (24-36)
[2016-07-23 20:31] LABS: ALBUMIN 4.6 G/DL (3.5-5.0); ALBUMIN/GLOBULIN RATIO 1.3 RATIO (1.1-2.2); ALKALINE PHOSPHATASE 158 U/L (38-126); ALT (SGPT) 73 U/L (9-52); ANION GAP 15 MEQ/L (5-15); AST (SGOT) 131 U/L (14-36); BUN/CREATININE RATIO 10 RATIO (6-26); CALCIUM 10.1 MG/DL (8.4-10.2); CHLORIDE 97 MEQ/L (98-107); CO2 - CARBON DIOXIDE 18 MEQ/L (22-30); CREATININE 0.6 MG/DL (0.7-1.2); GLOMERULAR FILTRATION RATE 102; GLUCOSE 120 MG/DL (65-110); POTASSIUM 3.5 MEQ/L (3.6-5); SODIUM 130 MEQ/L (134-144); TOTAL PROTEIN 8.1 G/DL (6.3-8.2)
[2016-07-23] MEDS ORDERED: SALINE FLUSH 10ml SYRINGE ONE (20:35)
[2016-07-23] MEDS ORDERED: NORMAL SALINE 100 ML ONE (20:35)
[2016-07-23] MEDS ORDERED: IOHEXOL 350 MG/ML 100ml INJECTION ONE (20:35)
--- NOTE | 2016-07-23 20:39 | NUR ---
CT TO CT VIA CART
--- NOTE | 2016-07-23 20:58 | NUR ---
CT RETURNS FROM CT VIA CART
[2016-07-23 21:17] LABS: BLOOD, URINE NEGATIVE (NEGATIVE); COLOR,URINE YELLOW (YELLOW); LEUKOCYTE ESTERASE ,URINE NEGATIVE (NEGATIVE); NITRITE,URINE NEGATIVE (NEGATIVE); UROBILINOGEN,URINE 0.2 EU/DL (NORMAL)
--- NOTE | 2016-07-23 21:47 | NUR ---
PROVIDER DR. FONTENOT IN ROOM
[2016-07-23 22:46] VITALS: BP 154/75; PULSE 88; RESP 16; TEMP 98.6; O2SAT 98
--- NOTE | 2016-07-24 07:54 | DI ---
Indication: ITS.REASON: Dizziness and blurry vision PROCEDURE: CT HEAD W/O CONTRAST: Encounter: Initial Comparison: None Technique: Axial CT images through the head were performed without contrast. Iterative Reconstruction dose reducing technique was utilized. FINDINGS: Mild atrophy. The ventricles are of normal size, shape, and contour for the patient's age. There are scattered areas of low attenuation in the white matter which most likely represent changes from chronic microvascular ischemia. The brainstem, cerebellum, and cerebral hemispheres otherwise have a normal morphology and CT attenuation. There is no evidence of midline displacement. No hemorrhage, signs of acute territorial stroke, mass effect, mass lesions, or edema is evident. The visualized portions of the skull base, midface, and calvarium demonstrate no abnormality. The paranasal sinuses are well aerated and free of significant disease. The tympanic and mastoid cavities appear normal. IMPRESSION: No acute intracranial abnormality or hemorrhage. There is a preliminary report by [email or web address]. .
--- NOTE | 2016-07-24 07:54 | DI ---
Indication: ITS.REASON: Uncontrolled HTN PROCEDURE: CTA ABDOMEN W/WO CONTRAST: Encounter: Initial Comparison: None Technique: Axial CT angiography abdomen was performed with and without contrast. Coronal and sagittal MIP constructive images were created and reviewed. Three-dimensional surface shaded volume rendered imaging of the abdominal aorta and arterial vasculature was created by the technologist on a dedicated workstation under the direction of the interpreting radiologist and reviewed Automated Exposure Control and Iterative Reconstruction dose reducing techniques were utilized. Contrast: Omnipaque 350 100mL Findings: The lung bases are clear. Noncontrast images show fatty infiltration of the liver but no other significant findings. Postcontrast images show no enhancing liver masses or bile duct dilatation. The gallbladder is surgically absent. The spleen, pancreas, adrenal glands and right kidney are within normal limits. Left kidney shows multifocal cortical loss and scarring. There is no evidence of abdominal aortic aneurysm or dissection. The renal artery origins are widely patent as are the celiac, SMA and SARAY. The visualized common, internal and external iliac arteries are also normal. The visualized loops of small and large bowel are unremarkable. Bone windows show no acute findings. Impression: No acute aortic syndrome. Hepatic steatosis. There is a preliminary report by [facility] [facility]. .
== END 2016-07-23 22:46 | disposition home or self-care (01) ==
LOC: ED 19:20
DX: I10 Essential (primary) hypertension (principal); N28.89 Other specified disorders of kidney and ureter; Z79.899 Other long term (current) drug therapy
CPT/HCPCS: 36415; 70450; 74175; 80053; 81003; 82948; 84484; 84703; 85025; 85610; 85730; 93005; 96374; 96376; 99284; J0360; J7050; Q9967

== ENCOUNTER 2016-07-24 21:37 | Emergency (ER) | payer OTHER ==
[~2016-07-24] VITALS: Ht 165.1 cm; Wt 64.0 kg
[~2016-07-24 21:37] MED LIST changes: +HYDR25TA PO; +LOSA100T44 PO; +METO-279 PO; -NO DAILY MEDS; +OMEP40CA52 PO; -PROP40TA7 PO
--- OUTSIDE RECORDS SUMMARY | 2016-07-24 21:42 | XMS REPORT | Continuity of Care Document ---
Author Author [facility] Organization [facility] Address Unknown Phone Unavailable Care Team Providers Care Naphthalene Operator Helper Name Role Phone DAYANA QUINTERO MD Primary Care Physician [phone] Insurance Providers Payer Name Policy Number Subscriber Name Relationship [employer] [id number] Terrance Pak 19 Self Advance Directives Directive [...] because (patient own words): "UTI" Discharge Diet: [place] diet, increase as able; plenty of fluids [...] F (96.8 - 99.1) Temperature (Calculated Celsius) 37.70516 degrees C (36.0 - 37.3) Temperature Source [...] 05, 2011 8:00pm LAB TEST FORM REQUEST [id number] - Lipase October 17, 2013 4:40am 44 [...] specimen been collected /obtained? Y Urine Specific [place] October 17, 2013 4:25am 1.010 L - [...] procedures. Encounters Encounter Location Date/Time Discharged Inpatient [facility] 10/17/13 6:17am Recent Diagnosis UTI (urinary tract infection) Vomiting Dehydration Bandemia Sepsis
--- OUTSIDE RECORDS SUMMARY | 2016-07-24 21:42 | XMS REPORT | Continuity of Care Document ---
Author Author [facility] Organization [facility] Address Unknown Phone Unavailable Support Name Relationship Address Phone MICA FONTENOT DO Caregiver [address] [place] [address] Unavailable DAYANA QUINTERO MD Caregiver [address] [place] [address] Unavailable FRANCINE PAK Next Of Kin [address] [place] [address] Insurance Providers Guarantor Terrance Pak Address [address] [place] [address] Email DENIED 16 Payer Other A Insurance Policy Number [id number] Subscriber's Name Terrance Pak Relationship 18 Self Group Number [id number] Advance Directives Directive Response Recorded Date/Time Advanced Directives Type None 10/17/13 8:00am Dr Mosher Resuscitation Status Full Code 10/17/13 6:17am Resuscitation Documents on File No 10/17/13 8:00am Chief Complaint and Reason for Visit Chief Complaint Hypertension Reason for Visit Malignant hypertension [id number] Problems Active Problems Medical Problem Onset Date Status Bandemia Unknown Acute Dehydration Unknown Acute Sepsis Unknown Acute UTI (urinary tract infection) Unknown Acute Vomiting Unknown Acute Past Problems Medical Problem Onset Date Hypertension Unknown Malignant hypertension Unknown Renal scarring Unknown Shakiness Unknown Tachycardia Unknown Medications Current Home Medications Medication Dose Units Route Directions Days Qty Instructions Start Date Hydrochlorothiazide 25 Mg Tablet 25 Mg Oral Give With Breakfast 07/23/16 Losartan Potassium 100 Mg Tablet 100 Mg Oral Daily 07/23/16 Metoprolol Succinate 100 Mg Tab.er.24h 100 Mg Oral Qd 07/23/16 Omeprazole [address] Emmie Martinez Oral Bedtime 07/23/16 Social History Social History Problem Response Recorded Date/Time Onset Date Status Chewing Tobacco Status No 10/17/2013 3:32am Not Applicable Not Applicable Hx Substance Use No 07/23/2016 9:00pm Not Applicable Not Applicable Hx Alcohol Use Y WEEKENDS TO RELAX 07/23/2016 9:00pm Not Applicable Not Applicable Has the pt used tobacco in the last 12 months No 10/17/2013 8:01am Not Applicable Not Applicable Tobacco Usage none 10/17/2013 9:12am Not Applicable Not Applicable Query Response Start Date Stop Date Smoking Status Never smoker Hospital Discharge Instructions No hospital discharge instructions. Plan of Care Discharge Date 07/23/16 10:46pm Disposition 01 DISCHARGED HOME, SELF-CARE Condition at Discharge Improved Instructions/Education Provided Hypertension (ED) Prescriptions See Medication Section Referrals DAYANA QUINTERO MD Order Date: 1 Day Address: [address] [place] [address] [phone] Additional Instructions/Education You have had severe-range blood pressures. We found some kidney scarring tonight. Your electrolytes (sodium, potassium, etc) were off, but that is very common when starting to take HCTZ. Take your medications as prescribed and call Dr. Mcmillan's office in the AM for a follow up appointment LISANDRO. Care Plan and Goals Physician Care Plan Problem: Malignant HTN Goal: Follow up with primary care provider Instructions: Take medications and follow care plan as discussed/written Functional Status No functional status results. Allergies, Adverse Reactions, Alerts Allergen Type Severity Reaction Status Last Updated No Known Drug Allergies Allergy Unknown Active 07/23/16 Immunizations Query Response on File Recorded Date/Time Hx Influenza Vaccination Y FEB 2013 10/17/13 8:01am Hx Pneumococcal Vaccination No 10/17/13 8:01am Hx Influenza Vaccination Y FEB 2013 10/17/13 8:01am Vital Signs Acute Vital Signs Vital Response Date/Time Temperature (Fahrenheit) 98.6 deg F (96.8 - 99.1) 07/23/2016 10:46pm Temperature (Calculated Celsius) 37.98665 degrees C (36.0 - 37.3) 07/23/2016 10:46pm Pulse Rate (adult) 88 bpm (60 - 100) 07/23/2016 10:46pm Respiratory Rate 16 breaths/min (10 - 20) 07/23/2016 10:46pm O2 Sat by Pulse Oximetry 98 % (90 - 100) 07/23/2016 10:46pm Blood Pressure 154/75 mm Hg 07/23/2016 10:46pm Height (Feet) 5 feet 07/23/2016 7:39pm Height (Inches) 5.00 inches 07/23/2016 7:39pm Weight (Kilograms) 64.000 kg 07/23/2016 7:39pm Body Mass Index (BMI) 23.0 07/23/2016 7:39pm Results Laboratory Results Test Name Result Units Flags Reference Collection Date/Time Result Date/ Time Comments White Blood Count 7.6 T/MM3 4.5-11.0 07/23/2016 8:13pm 07/23/2016 8: 21pm Red Blood Count 3.56 M/MM3 L 4.00-5.20 07/23/2016 8:1307/23/2016 8: 21pm Hemoglobin 11.9 GM/DL L 12-16 07/23/2016 8:07/23/2016 8:21pm Hematocrit 34.1 % L 36-46 07/23/2016 8:07/23/2016 8:21pm Mean Corpuscular Volume 95.8 UM3 80-100 07/23/2016 8:07/23/2016 8: 21pm Mean Corpuscular Hemoglobin 33.4 UUG 26-34 07/23/2016 8:2016 8:21pm Mean Corpuscular Hemoglobin Concent 34.9 GM/DL 31-37 07/23/2016 8:07/23/2016 8:21pm RDW Standard Deviation 37.9 FL 36.9-50.2 07/23/2016 8:07/23/2016 8 :21pm Platelet Count 144 T/MM3 130-400 07/23/2016 8:07/23/2016 8:21pm Mean Platelet Volume 9.7 UM3 9.4-12.4 07/23/2016 8:07/23/2016 8: 21pm Neutrophils (%) (Auto) 65.1 % 33-66 07/23/2016 8:07/23/2016 8: 21pm Lymphocytes (%) (Auto) 23.2 % 23-45 07/23/2016 8:07/23/2016 8: 21pm Monocytes (%) (Auto) 10.8 % H 0-9.0 07/23/2016 8:pm 07/23/2016 8:21pm Eosinophils (%) (Auto) 0.5 % 0-4 07/23/2016 8:07/23/2016 8:21pm Basophils (%) (Auto) 0.3 % 0-2 07/23/2016 8:07/23/2016 8:21pm Immature Granulocyte % (Auto) 0.1 % 0.0-0.5 07/23/2016 8:2016 8:21pm Absolute Neutrophils (auto) 5.0 T/MM3 1.8-7.7 07/23/2016 8:132016 8:21pm Absolute Lymphocytes (auto) 1.8 T/MM3 1-4.8 07/23/2016 8:2016 8:21pm Absolute Monocytes (auto) 0.8 T/MM3 0-0.8 07/23/2016 8:13pm 07/23/2016 8:21pm Absolute Eosinophils (auto) 0.0 T/MM3 0-0.5 07/23/2016 8:pm 2016 8:21pm Absolute Basophils (auto) 0.0 T/MM3 0-0.2 07/23/2016 8:07/23/2016 8:21pm Absolute Immature Granulocyte (auto 0.01 T/MM3 0.00-0.03 07/23/2016 8: 07/23/2016 8:21pm Prothromb Time International Ratio 0.99 0.76-1.04 07/23/2016 8:07/23/2016 8:28pm THERAPUTIC RANGE=2.00-3.00 FOR ANTI-THROMBOSIS THERAPUTIC RANGE=2.50-3.50 FOR IMPLANTED VALVE Activated Partial Thromboplast Time 26.9 SEC 24-36 07/23/2016 8: 8:28pm Icterus Index < 2 0-7 07/23/2016 8:07/23/2016 8:31pm Chemistry Specimen Hemolysis < 15 0-25 07/23/2016 8:07/23/2016 8 :31pm 0-25: Specimen Exhibited No Hemolysis. Turbidity < 20 0-20 07/23/2016 8:07/23/2016 8:31pm Sodium Level 130 MEQ/L L 134-144 07/23/2016 8:pm 07/23/2016 8:31pm Potassium Level 3.5 MEQ/L L 3.6-5 07/23/2016 8:07/23/2016 8:31pm Chloride Level 97 MEQ/L L 98-107 07/23/2016 8:1307/23/2016 8:31pm Carbon Dioxide Level 18 MEQ/L L 22-30 07/23/2016 8:1307/23/2016 8: 31pm Anion Gap 15 MEQ/L 5-15 07/23/2016 8:1307/23/2016 8:31pm Blood Urea Nitrogen 6.0 MG/DL L 7-17 07/23/2016 8:1307/23/2016 8: 31pm Creatinine 0.6 MG/DL L 0.7-1.2 07/23/2016 8:1307/23/2016 8:31pm BUN/Creatinine Ratio 10 RATIO 6-26 07/23/2016 8:07/23/2016 8:31pm Glomerular Filtration Rate Calc 102 07/23/2016 8:07/23/2016 8: 31pm Glucose Level 120 MG/DL H 65-110 07/23/2016 8:07/23/2016 8:31pm Calculated Osmolality 250 MOSM/KG L 261-280 07/23/2016 8:2016 8:31pm Calcium Level 10.1 MG/DL 8.4-10.2 07/23/2016 8:07/23/2016 8:31pm Total Bilirubin 1.90 MG/DL H 0.20-1.30 07/23/2016 8:07/23/2016 8: 31pm Alkaline Phosphatase 158 U/L H 38-126 07/23/2016 8:07/23/2016 8: 31pm Total Protein 8.1 G/DL 6.3-8.2 07/23/2016 8:07/23/2016 8:31pm Albumin 4.6 G/DL 3.5-5.0 07/23/2016 8:07/23/2016 8:31pm Globulin 3.5 G/DL 2.4-3.6 07/23/2016 8:07/23/2016 8:31pm Albumin/Globulin Ratio 1.3 RATIO 1.1-2.2 07/23/2016 8:07/23/2016 8 :31pm Aspartate Amino Transf (AST/SGOT) 131 U/L H 14-36 07/23/2016 8:13pm 06/2016 8:31pm Alanine Aminotransferase (ALT/SGPT) 73 U/L H 9-52 07/23/2016 8:13pm 06/2016 8:31pm Troponin I < 0.012 ng/ml 0-0.12 07/23/2016 8:13pm 07/23/2016 8:42pm Troponin values with a difference of 55% increase from orginal troponin value represent a true biological DELTA value. (%increase Calc=Orginal Troponin value, divided by subsequent Troponin value, multiplied by 100) Urine Collection Type CLEANCATCH-MIDSTREAM 07/23/2016 9:07pm 2016 9:17pm Urine Color YELLOW YELLOW 07/23/2016 9:07pm 07/23/2016 9:17pm Urine Turbidity CLEAR CLEAR 07/23/2016 9:07pm 07/23/2016 9:17pm Urine Specific [place] <=1.005 L 1.015-1.025 07/23/2016 9:07pm 2016 9:17pm Urine pH 6.0 5.0-8.0 07/23/2016 9:07pm 07/23/2016 9:17pm Urine Leukocyte Esterase NEGATIVE NEGATIVE 07/23/2016 9:07pm 2016 9:17pm Urine Nitrite NEGATIVE NEGATIVE 07/23/2016 9:07pm 07/23/2016 9:17pm Urine Protein NEGATIVE NEGATIVE 07/23/2016 9:07pm 07/23/2016 9:17pm Urine Glucose (UA) NEGATIVE NEGATIVE 07/23/2016 9:07pm 07/23/2016 9: 17pm Urine Ketones NEGATIVE NEGATIVE 07/23/2016 9:07pm 07/23/2016 9:17pm Urine Urobilinogen 0.2 EU/DL NORMAL 07/23/2016 9:07pm 07/23/2016 9: 17pm Urine Bilirubin NEGATIVE NEGATIVE 07/23/2016 9:07pm 07/23/2016 9: 17pm Urine Blood NEGATIVE NEGATIVE 07/23/2016 9:07pm 07/23/2016 9:17pm Urinalysis Comment MICROSCOPIC NOT IND. 07/23/2016 9:07pm 2016 9:17pm Glucometer 97 mg/dL 65-110 07/23/2016 8:17pm 07/23/2016 8:20pm Procedures No known history of procedures. Encounters Encounter Location Arrival/Admit Date Discharge/Depart Date Attending Provider Departed Emergency Room [facility] 07/23/16 7:20pm 07/23/16 10: 46pm MICA FONTENOT DO Recent Diagnosis
[2016-07-24 21:46] VITALS: Ht 165.1 cm; Wt 64.0 kg
[2016-07-24] MEDS ORDERED: ONDANSETRON 4mg/2ml INJECTION IV ONE (22:00)
--- OUTSIDE RECORDS SUMMARY | 2016-07-24 22:06 | XMS REPORT | Continuity of Care Document ---
Author Author [facility] Organization [facility] Address Unknown Phone Unavailable Care Team Providers Care Landfill Attendant Name Role Phone DAYANA QUINTERO MD Primary Care Physician [phone] Insurance Providers Payer Name Policy Number Subscriber Name Relationship [employer] [id number] Terrance Pak 19 Self Advance Directives Directive [...] because (patient own words): "UTI" Discharge Diet: [place] diet, increase as able; plenty of fluids [...] F (96.8 - 99.1) Temperature (Calculated Celsius) 37.08883 degrees C (36.0 - 37.3) Temperature Source [...] 05, 2011 8:00pm LAB TEST FORM REQUEST [id number] - Lipase October 17, 2013 4:40am 44 [...] specimen been collected /obtained? Y Urine Specific [place] October 17, 2013 4:25am 1.010 L - [...] procedures. Encounters Encounter Location Date/Time Discharged Inpatient [facility] 10/17/13 6:17am Recent Diagnosis UTI (urinary tract infection) Vomiting Dehydration Bandemia Sepsis
[2016-07-24 22:24] LABS: BASOPHILS % (AUTO) 0.3 % (0-2); EOSINOPHILS # (AUTO) 0.1 T/MM3 (0-0.5); EOSINOPHILS % (AUTO) 1.5 % (0-4); HCT - HEMATOCRIT 33.6 % (36-46); HGB - HEMOGLOBIN 11.7 GM/DL (12-16); IMMATURE GRANULOCYTE # (AUTO) 0.02 T/MM3 (0.00-0.03); IMMATURE GRANULOCYTE % (AUTO) 0.3 % (0.0-0.5); LYMPHOCYTES # (AUTO) 1.7 T/MM3 (1-4.8); LYMPHOCYTES % (AUTO) 24.9 % (23-45); MEAN CORPUSCULAR HGB 33.9 UUG (26-34); MEAN CORPUSCULAR HGB CONC(MCHC 34.8 GM/DL (31-37); MEAN CORPUSCULAR VOLUME 97.4 UM3 (80-100); MEAN PLATELET VOLUME 10.1 UM3 (9.4-12.4); MONOCYTES # (AUTO) 0.8 T/MM3 (0-0.8); MONOCYTES % (AUTO) 11.9 % (0-9.0); NEUTROPHILS #(AUTO)-ABSOLUTE 4.1 T/MM3 (1.8-7.7); NEUTROPHILS % (AUTO) 61.1 % (33-66); RED BLOOD COUNT 3.45 M/MM3 (4.00-5.20); WBC - WHITE BLOOD COUNT 6.8 T/MM3 (4.5-11.0)
--- NOTE | 2016-07-24 22:28 | ERPDOC ---
Departure Disposition Decision Date: Jul 25, 2016 Disposition Decision Time: 00:23 Disposition: 01 DISCHARGED HOME, SELF-CARE Impression Impression Impression: Primary Impression: Hypertensive emergency Additional Impressions: Kidney scarring Electrolyte abnormality Severity: Severe Condition: Improved Seen By: Physician only Referrals: DAYANA QUINTERO MD (Family) 3 Days Patient Instructions: Hypertension (ED) Problems/Meds/Labs Reviewed?: Yes Medications reviewed and manag: Yes Additional Instructions: You have had severe range blood pressures tonight. We fixed them with hydralazine. We are adding hydralazine to your other medications to control your blood pressure. Take this medication as prescribed and follow up with Dr. Qunitero as discussed. If you have a rash, follow up immediately. You will likely need a referral to a kidney doctor to evaluate your blood pressure and kidney scarring. Follow up care ordered?: Yes Mental Status: Alert, Oriented Scripts Hydralazine HCl (Hydralazine HCl) 25 Mg Tablet 1 TAB PO BID for 30 Days, #60 TAB BEST TAKEN WITH MEALS. Prov: AUGUSTMICA DO 07/25/16 HPI - General Medical General Chief Complaint: Hypertension Stated Complaint: HIGH BLOOD PRESSURE Time Seen by Provider: 21:58 Source: patient Exam Limitations: no limitations HPI - General Medical Initial Comments 60yo woman represents to the ER tonight for HTN. Pt left here last night with improved pressures. When she awoke this AM, her BP was normal-range. Pt was seen by her PCM's OPEN SHANK COVERER today; pt feels that OPEN SHANK COVERER did not understand discharge instructions or ER physician concerns. Pt was sx free and normal range pressure until after grocery shopping this afternoon. Pt noticed that her BP was 170/ something, so she took a second metoprolol. Pt then retook her BP and SBP was 190s, so pt came to the ER for re-eval. Pt states that she has been given something in the past for anxiety, but "my doctor didn't believe in it, so he didn't continue it.". Pt wonders if her sx may be due to anxiety. Occurred At: home Onset: Rapid Duration: 1-3 hrs Severity: severe Associated Symptoms: headaches Hx of Similar Symptoms: Yes Allergies: Coded Allergies: No Known Drug Allergies (Verified Allergy, Unknown, 07/24/16) Past History Past Medical History Metabolic: hypertension GI: GERD Surgical History General: gallbladder, tonsils Family History Family PMH: FOUND: CAD, [place] Vaccines Hx Influenza Vaccination: Yes (FEB 2013) Hx Pneumococcal Vaccination: No Social History Substance Use Type: does not use Alcohol Intake: none Sexuality: male partner Review of Systems Eyes Vision: blurring Neurological General: headache All other Systems All Other Systems: Reviewed and Negative Physical Exam General General Nourishment: well nourished, well developed, appears stated age, no acute distress, adult, obese General Body Habitus: well groomed Vitals and Pain Weight: Kilograms: Height (feet): 5 Height (inches): 5.00 Triage Pain Scale: RN VS reviewed by Provider: Yes Normal Exams: Head: Normocephalic w/o trauma Eyes: Pupils are PERRLA w/ EOMI, No scleral icterus, irritation ENMT: No facial trauma, nasal exudates, pharyngeal erythema Neck: Full range of motion, without adenopathy, JVD Chest/Resp: Clear all adorno, with good airflow CV: Regular rate and rhythm, without murmur or gallop Abdomen: Bowel sounds positive, soft, non-tender Lymphatic: No lymphadenopathy Musculoskeletal: No tenderness, or deformity noted Integumentary: No rashes, hives, or bruising noted Neurologic: Patient is alert, and oriented Psychiatric: Patient exhibits, appropriate attention Differential Diagnoses Considering: Acute [place], Hypo/Hyperkalemia, Hypo/Hypernatremia, Medication Effect , Metabolic, UTI, Other (Renal pathology; hypertensive urgency) Progress Results/Orders Orders Procedure Category Date Status Time Cmp - Comprehensive LAB 07/24/16 Complete Metabolic 21:58 Cbc W/Auto LAB 07/24/16 Complete Diff-Reflex Manual 21:58 Troponin I W LAB 07/24/16 Complete Hemolysis Index 21:58 Ua, Dip Wreflex LAB 07/24/16 Complete Microsc & Building Maintenance Supervisor 21:58 EKG EKG 07/24/16 Taken 21:58 Iv Lock (Ed Only) EDM 07/24/16 Transmitted 21:58 Ondansetron Inj PHA 07/24/16 Complete (Zofran) 22:00 Hydralazine PHA 07/24/16 Complete (Apresoline) 22:00 Lorazepam (Ativan) PHA 07/24/16 Complete 22:30 Lab Results Laboratory Tests Test 07/24/16 22:16 07/24/16 23:17 White Blood Count 6.8T/MM3 Red Blood Count 3.45M/MM3 Hemoglobin 11.7GM/DL Hematocrit 33.6% Mean Corpuscular Volume 97.4UM3 Mean Corpuscular Hemoglobin 33.9UUG Mean Corpuscular Hemoglobin Concent 34.8GM/DL RDW Standard Deviation 39.8FL Platelet Count 139T/MM3 Mean Platelet Volume 10.1UM3 Immature Granulocyte % (Auto) 0.3% Neutrophils (%) (Auto) 61.1% Lymphocytes (%) (Auto) 24.9% Monocytes (%) (Auto) 11.9% Eosinophils (%) (Auto) 1.5% Basophils (%) (Auto) 0.3% Absolute Immature Granulocyte (auto 0.02T/MM3 Absolute Neutrophils (auto) 4.1T/MM3 Absolute Lymphocytes (auto) 1.7T/MM3 Absolute Monocytes (auto) 0.8T/MM3 Absolute Eosinophils (auto) 0.1T/MM3 Absolute Basophils (auto) 0.0T/MM3 Turbidity < 20 Sodium Level 129MEQ/L Potassium Level 3.1MEQ/L Chloride Level 92MEQ/L Carbon Dioxide Level 19MEQ/L Anion Gap 18MEQ/L Blood Urea Nitrogen 11.0MG/DL Creatinine 0.9MG/DL Glomerular Filtration Rate Calc 64 BUN/Creatinine Ratio 12RATIO Glucose Level 123MG/DL Calculated Osmolality 249MOSM/KG Calcium Level 10.4MG/DL Total Bilirubin 1.80MG/DL Icterus Index < 2 Aspartate Amino Transf (AST/SGOT) 142U/L Alanine Aminotransferase (ALT/SGPT) 76U/L Alkaline Phosphatase 145U/L Troponin I < 0.012ng/ml Total Protein 8.1G/DL Albumin 4.6G/DL Globulin 3.5G/DL Albumin/Globulin Ratio 1.3RATIO Chemistry Specimen Hemolysis < 15 Urine Collection Type Cleancatch-midstream Urine Color Yellow Urine Turbidity Clear Urine pH 5.0 Urine Specific [place] 1.010 Urine Protein Negative Urine Glucose (UA) Negative Urine Ketones Trace Urine Blood Trace-intact Urine Nitrite Negative Urine Bilirubin Negative Urine Urobilinogen 0.2EU/DL Urine Leukocyte Esterase Trace Urinalysis Comment Microscopic not ind. Medications Current ED Medications Ondansetron HCl (Zofran) 4 mg O ONCE IV Last administered on 07/24/16t 23:28; Start 07/24/16 at 22:00; Stop 07/24/16 at 22:01; Status DC Hydralazine HCl (Apresoline) 20 mg O ONCE IV Last administered on 07/24/16 23: 29; Start 07/24/16 at 22:00; Stop 07/24/16 at 22:01; Status DC Lorazepam (Ativan) 2 mg O ONCE PO Last administered on 07/24/16 22:41; Start 07/24/16 at 22:30; Stop 07/24/16 at 22:31; Status DC Progress Progress Discussed dx, prognosis, and proposed treatment with pt and who voiced understanding. Pts OPEN SHANK COVERER referred her to cardiology. Reinforced that this referral would be helpful. Reinforced that hydralazine is in addition to her other medications. Discussed risk of drug-induced lupus with pt. Pt and voiced understanding of risks/benefits of current treatment, referrals, and admission vs discharge to home. EKG EKG : Rate: 60-100 Rhythm: sinus [place]: normal QRS: normal Intervals: normal ST/T: normal Interpreted by: signing physician Consult/PCP Consult/PCP : Physician Contacted: Edwardo Bueno Time Called: 23:53 Time of first response: 23:55 Type of discussion: Phone Consult/PCP Discussion Details Discussed dx, tx to date, ddx, and potential tx/dispo. Can either admit and start PO hydralazine or can start hydralazine 25mg PO bid. MICA FONTENOT DO Jul 24, 2016 22:28 Type of discussion: Phone Consult/PCP Discussion Details Discussed dx, tx to date, ddx, and potential tx/dispo. Can either admit and start PO hydralazine or can start hydralazine 25mg PO bid. MICA FONTENOT DO Jul 24, 2016 22:28
[2016-07-24] MEDS ORDERED: LORAZEPAM 2 MG TABLET PO ONE (22:30)
[2016-07-24 22:34] LABS: ALBUMIN 4.6 G/DL (3.5-5.0); ALBUMIN/GLOBULIN RATIO 1.3 RATIO (1.1-2.2); ALKALINE PHOSPHATASE 145 U/L (38-126); ALT (SGPT) 76 U/L (9-52); ANION GAP 18 MEQ/L (5-15); AST (SGOT) 142 U/L (14-36); BUN/CREATININE RATIO 12 RATIO (6-26); CALCIUM 10.4 MG/DL (8.4-10.2); CHLORIDE 92 MEQ/L (98-107); CO2 - CARBON DIOXIDE 19 MEQ/L (22-30); CREATININE 0.9 MG/DL (0.7-1.2); GLOMERULAR FILTRATION RATE 64; GLUCOSE 123 MG/DL (65-110); POTASSIUM 3.1 MEQ/L (3.6-5); SODIUM 129 MEQ/L (134-144); TOTAL PROTEIN 8.1 G/DL (6.3-8.2)
--- NOTE | 2016-07-24 23:10 | NUR ---
BR PT AMBULATES TO BR AT THIS TIME.
[2016-07-24 23:23] LABS: BLOOD, URINE TRACE-INTACT (NEGATIVE); COLOR,URINE YELLOW (YELLOW); LEUKOCYTE ESTERASE ,URINE TRACE (NEGATIVE); NITRITE,URINE NEGATIVE (NEGATIVE); UROBILINOGEN,URINE 0.2 EU/DL (NORMAL)
[2016-07-25] MEDS ORDERED: HYDR-4180 PO (00:26)
--- NOTE | 2016-07-25 00:41 | NUR ---
ivl ivl dc'd with cath intact drsg applied to iv site pt brie well
--- NOTE | 2016-07-25 00:43 | NUR ---
INSTRUCTIONS DISMISSAL AND MEDICATION INSTRUCTIONS GIVEN TO PT RX GIVEN FOR HYDRALAZINE WITH INSTRUCTIONS PT DENIES ANY QUESTIONS VERBALIZED UNDERSTANDING OF ALL
[2016-07-25 00:45] VITALS: BP 116/57; PULSE 85; RESP 18; TEMP 98.2; O2SAT 98
--- NOTE | 2016-07-25 00:45 | NUR ---
FALL PT WAS WALKING OUT WITH HER SPOUSE AND GOT TANGLED UP WITH HER SHOES WHEN TURNING TO GO OUT OF THE CORRECT EXIT DOORS. SHE FELL DOWN ONTO HER RIGHT KNEE FIRST AND THEN ONTO THE LEFT ONE. SHE THEN JUST SET DOWN ON HER BOTTOM. DENIES FEELING DIZZY OR LIGHTHEADED. STATES SHE JUST GOT TANGLED UP. BRUISE STARTING ON THE RIGHT KNEE, BUT PT HAS FULL ROM AND DENIES PAIN. ASSISTED BACK INTO W/C BY STAFF AND PT CONTINUES TO REPORT SHE FEELS FINE. STATES SHE WANTS TO GO HOME. CHARGE NURSE AND NOTIFIED AND PT TAKEN TO VEHICLE BY RN PER W/C PT HAD DECLINED W/C WHEN DISMISSED IN ROOM
--- NOTE | 2016-07-25 00:45 | NUR ---
DISMISS PT DISMISSED AMBULATORY WITH SPOUSE
== END 2016-07-25 00:45 | disposition home or self-care (01) ==
LOC: ED 21:37
DX: I16.1 Hypertensive emergency (principal); N28.89 Other specified disorders of kidney and ureter; E87.8 Other disorders of electrolyte and fluid balance, not elsewhere classified
CPT/HCPCS: 80053; 81003; 84484; 85025; 93005; 96374; 96375; 99284; J0360; J2405

== ENCOUNTER 2017-04-30 20:54 | Inpatient (IN) ==
[2017-04-30] MEDS ORDERED: SALINE FLUSH 10ml SYRINGE IVF PRN (21:24)
--- NOTE | 2017-04-30 21:39 | Emergency Department Report ---
General Adult HPI - General Chief complaint: Medical Emergency Stated complaint: Flu, low sodium Time Seen by Provider: 04/30/17 21:15 Source: patient, family Mode of arrival: ambulatory Limitations: no limitations - History of Present Illness HPI narrative: Pt presents to the ER after EMS and police showed up at her house telling her she needed to go to the ER because of a critical low sodium level. PT does not know what her level was. Pt began not feeling well 4 nights ago which then turned to fever, vomiting, and abd pain the next day. Pt was seen in the ER that evening, refused a work up but did receive medications. She then followed up with her physician as symptoms continued. Today pt has been taking zofran and tolerating PO fluids and was able to eat dinner. She states pain has resolved and she is voicing no complaints. Onset (ago): hour(s) Location: abdomen Radiation: non-radiation Consistency: now resolved Relieving factors: medication - Related Data Home Medications Medication Instructions Recorded Confirmed Metoprolol Succinate 100 mg PO QD #0 07/23/16 04/30/17 Hydralazine [Apresoline] 25 mg PO BID 04/29/17 04/30/17 Losartan [Cozaar] 100 mg PO DAILY 04/29/17 04/30/17 Acetaminophen 325 mg PO PRN PRN 04/30/17 04/30/17 Aspirin *EC* [Ecotrin] 1 tab PO DAILY 04/30/17 04/30/17 FLUoxetine [Prozac] 10 mg PO DAILY 04/30/17 04/30/17 Ibuprofen 200 mg PO PRN PRN 04/30/17 04/30/17 Multivit-Min/FA/Lycopen/Lutein 1 each PO DAILY 04/30/17 04/30/17 [Complete Multi 50+ Tablet] Previous Rx's Medication Instructions Recorded Ondansetron Odt [Zofran Po] 4 mg PO Q6HR PRN #0 05/02/17 Allergies Allergy/AdvReac Type Severity Reaction Status Date / Time No Known Drug Allergies Allergy Unknown Verified 04/30/17 22:16 Review of Systems All systems: reviewed and negative except as stated Constitutional: Reports: as per HPI Gastrointestinal: Reports: as per HPI PFSH Patient Stated Medical History Hypertension Yes Gastroesophageal Reflux Yes Disease Depression Yes - Social History Smoking status: Never smoker Physical Exam - Limitations Limitations: no limitations - General General appearance: alert, in no apparent distress - Normal Exams: Head:: Normocephalic without trauma Chest/Respirations:: Clear all adorno, with good airflow Cardiovascular:: Regular rate and rhythm, without murmur or gallop, Pulses 2+ all extremities, capillary refill, <2 seconds all extremities Abdomen:: Bowel sounds positive, soft, non-tender, non-distended Musculoskeletal:: No tenderness, or deformity noted, good range of motion, all extremities Integumentary:: No rashes Neurological:: Patient is alert, and oriented, cranial nerves, motor/sensory/ cerebellar, exams w/o gross deficits, to observation Psychiatric:: Patient exhibits, appropriate attention, emotion and affect Course Vital Signs Temperature 98.4 F 04/30/17 21:02 Pulse Rate 67 04/30/17 21:02 Respiratory Rate 18 04/30/17 21:02 Blood Pressure 175/76 H 04/30/17 21:02 Pulse Oximetry 99 04/30/17 21:02 Temperature 96.3 F L 05/02/17 07:00 Pulse Rate 69 05/02/17 08:00 Respiratory Rate 16 05/02/17 07:00 Blood Pressure 157/75 H 05/02/17 07:00 Pulse Oximetry 99 05/02/17 07:00 Medical Decision Making - [facility] Narrative Medical decision making narrative: Labs reviewed. Hospitalist notified of need for admission. Additional orders obtained. PT verbalizes understanding of plan. - Differential Diagnosis hyponatreamia, abd pain, gastroenteritis - Lab Data Result diagrams: 05/02/17 03:56 05/02/17 03:56 Lab Results 04/30/17 04/30/17 Range/Units 21:54 21:54 Turbidity < 20 (0-20) Sodium 115 L* (134-144) MEQ/L Potassium 3.0 L (3.6-5) MEQ/L Chloride 79 L (98-107) MEQ/L Carbon Dioxide 24 (22-30) MEQ/L Anion Gap 12 (5-15) MEQ/L BUN 14.0 (7-17) MG/DL Creatinine 1.5 H (0.7-1.2) MG/DL GFR Calculation 35 BUN/Creatinine Ratio 9 (6-26) RATIO Glucose 112 H (65-110) MG/DL Calculated Osmolality 225 L (261-280) MOSM/KG Calcium 9.0 (8.4-10.2) MG/DL Icterus Index < 2 (0-7) TSH 2.13 (0.47-4.68) MIU/L Specimen Hemolysis < 15 (0-25) Disposition Clinical Impression: Hyponatremia Surgical wound dehiscence Qualifiers: Encounter type: initial encounter Qualified Code(s): T81.31XA - Disruption of external operation (surgical) wound, not elsewhere classified, initial encounter [place] [facility] [place] Condition: Stable - Seen By: midlevel
[2017-04-30] MEDS ORDERED: PROMETHAZINE 25 MG INJECTION IVP PRN (22:33)
[2017-04-30] MEDS ORDERED: SENNA + DOCUSATE TABLET PO PRN (22:33)
[2017-04-30] MEDS ORDERED: HYDROCODONE/APAP 5mg/325mg TABLET PO PRN (22:33)
[2017-04-30] MEDS ORDERED: ACETAMINOPHEN 325 MG TABLET PO PRN (22:33)
[2017-04-30] MEDS ORDERED: ONDANSETRON 4 MG/2 ML INJECTION IVP PRN (22:33)
[2017-04-30] MEDS: NS 1,000 ML IV SCH (22:48)
[2017-04-30 23:45] VITALS: BMI 23.5
--- NOTE | 2017-05-01 00:45 | History & Physical Report ---
History of Present Illness Date: 05/01/17 Chief complaint: abdominal pain and nausea HPI: The pt has had a 5 days history of nausea and generalized abdominal pain that has been getting better over the last 24 hours. She states she has had several frequent loose stools 3 days ago but not over the past 48 hours, no fevers at home, but very poor PO intake, only drinking water for the past 4 days. She came to the Er on 04/29 and discharged with a dx of URI, went to see PCP this morning who thu labs and noted that her sodium was 116 and called the police to pick her up and bring her to the ER. Review of Systems - Constitutional Constitutional: Present: anorexia, chills, fatigue, headache(s), malaise - EENMT Eyes: Absent: change in vision Balance: Absent: vertigo, falling to one side - Cardiovascular Cardiovascular: Absent: chest pain - Respiratory Respiratory: Absent: cough, dyspnea - Gastrointestinal Gastrointestinal: Present: abdominal pain, change in bowel habits, diarrhea, nausea. Absent: constipation, vomiting Past Medical History Patient Stated Medical History Hypertension Yes Gastroesophageal Reflux Yes Disease Depression Yes Family History Updates: none - Social History Smoking status: Never smoker Substance use type: does not use Alcohol intake frequency: does not drink Housing: house Household members: significant other Medications Home Medications Medication Instructions Recorded Confirmed Type Metoprolol Succinate 100 mg PO QD #0 07/23/16 04/30/17 History Hydralazine [Apresoline] 25 mg PO BID 04/29/17 04/30/17 History Losartan [Cozaar] 100 mg PO DAILY 04/29/17 04/30/17 History Acetaminophen 325 mg PO PRN PRN 04/30/17 04/30/17 History Aspirin *EC* [Ecotrin] 1 tab PO DAILY 04/30/17 04/30/17 History FLUoxetine [Prozac] 10 mg PO DAILY 04/30/17 04/30/17 History Ibuprofen 200 mg PO PRN PRN 04/30/17 04/30/17 History Multivit-Min/FA/Lycopen/Lutein 1 each PO DAILY 04/30/17 04/30/17 History [Complete Multi 50+ Tablet] Ondansetron Odt [Zofran Po] 4 mg PO Q6HR 04/30/17 04/30/17 History Allergies Allergy/AdvReac Type Severity Reaction Status Date / Time No Known Drug Allergies Allergy Unknown Verified 04/30/17 22:16 Exam Vital Signs: Temperature 97.5 F 04/30/17 23:53 Pulse Rate 65 04/30/17 23:53 Respiratory Rate 10 04/30/17 23:53 Blood Pressure 185/77 H 04/30/17 23:53 Pulse Oximetry 100 04/30/17 23:53 Height/Weight/BMI: Height 1.65 m Weight 64.1 kg Body Mass Index 23.5 - Constitutional Present: no acute distress, well nourished - Routine HEENT Exam Head: Present: normocephalic - Routine Neck Exam Present: supple - Routine Respiratory Exam Present: CTA bilaterally - Routine Cardiovascular Exam Present: RRR, no murmur - Routine Abdominal Exam Present: soft, normoactive bowel sounds, non tender. Absent: rebound - Routine Extremities Exam Present: edema, no edema Results - Labs CBC & Chem 7: 05/01/17 06:02 05/01/17 06:02 Assessment and Plan (1) Hyponatremia Current visit: Yes Status: Acute Assessment and Plan: free water restriction, started on NS IV, recheck labs in am, checking osmolarities in urine and serum as well as sodium urine. pt is asymptomatic at this time, antiemetics ordered, 05/01/2017-Dr. Reed I have reviewed the H&P above and agree. Please see my additions below. Patient is a very pleasant 7-year-old female who had been feeling poorly for 4 days prior to admission. She was having nausea, vomiting abdominal pain and diarrhea. For about 2-1/2 days she was not able to keep anything down other than a little water. She saw her physician on the day of admission and lab work was drawn. Late in the evening it was noted that her sodium was low at 116 and her physician attempted to call her but could not reach her. He did then call 911 and the police and EMS arrived and recommended she go to the hospital. The patient was found to have sodium of 115, potassium 3.0, chlorides 79, bicarbonate 24, BUN 14 and creatinine of 1.5. The patient states that yesterday she was feeling a little lightheaded in the morning but as the day progressed she was feeling a little better. She was admitted last evening and started on normal saline. She states this morning she feels well. She was able to eat a regular breakfast. Her diarrhea has resolved. Her abdominal pain has resolved. When she was feeling ill, she had fevers, chills and sweats but that has resolved as well. She never had any cough, rhinorrhea, sore throat or shortness of breath. She did not have generalized achiness. Past medical history significant for anxiety and hypertension Past surgical history significant for tonsillectomy and cholecystectomy Comprehensive review of systems is negative other than the above in history of present illness. Family history significant for her dad dying at age 74 of [place], mom has hypertension and is living, multiple people on her mother's side of the family have had strokes. She had a brother at 49 with heart disease. She had a brother at age 59 of COPD and he was a smoker and she stated had alcohol and drug problems as well. She has 2 other brothers who are healthy. Medications are reviewed. The patient states none of her medications are new other than Zofran which was started yesterday for nausea Physical exam Blood pressure is 153/76, heart rate 60, she is afebrile, O2 sat 96% on room air Gen. this is well-developed well-nourished pleasant female in no acute distress. She is a good historian. HEENT reveals pupils to be equal round and reactive, extraocular movements are intact. Oropharynx is moist. She does have a bruise on the right side of her tongue states that she bit her tongue a couple of days ago. Neck is supple without lymphadenopathy, bruits or JVD. Chest is clear to auscultation. Cardiovascular reveals a regular rate and rhythm without murmur. Abdomen is soft and nontender with positive bowel sounds. There is no distention. Extremities are free of clubbing cyanosis or edema. Skin is warm and dry and without rashes. Psychiatric reveals normal affect without obvious anxiety. Musculoskeletal exam reveals no significant abnormalities. Neurologic reveals patient to be alert and oriented with no focal deficits. Lab work was reviewed. Sodium today is 118 up from 1:15. Magnesium is normal at 1.9. Phosphorus normal at 4.1. TSH is normal. Potassium is still low at 3.0. Creatinine has improved from 1.5-1.0. Urine sodium is very low at 7. Impression Probable viral gastroenteritis with nausea, vomiting, diarrhea and abdominal pain-symptoms have resolved Hyponatremia likely secondary to recent viral gastroenteritis with poor by mouth intake Mild acute kidney injury-resolved Dehydration-resolved Hypokalemia Hypertension-chronic, stable Anxiety-doing well on Prozac Plan Continue normal saline for now. Recheck basic metabolic profile later today. Replace potassium orally. Recheck basic metabolic profile tomorrow. Possible discharge tomorrow if sodium continues to improve and the patient is continuing to improve. Restart losartan since acute kidney injury has resolved and the patient is eating and drinking well. Continue her other home blood pressure medications. Continue Prozac for anxiety. - Physician Narrative Physician: Quinten Fierro MD Narrative: Date: 05/01/17 Time: 0042 Hospital Course Summary Disclaimer: The visit summary below is not to be considered part of the above Progress Note.
[2017-05-01] MEDS: NS 1,000 ML IV SCH ×2 (09:15→21:00)
[2017-05-01] MEDS: ASPIRIN *EC* 81 MG TABLET PO SCH (09:23)
[2017-05-01] MEDS: HYDRALAZINE 25 MG TABLET PO SCH ×2 (09:23→22:00)
[2017-05-01] MEDS: FLUoxetine 10 MG CAPSULE PO SCH (12:05)
[2017-05-01] MEDS: LOSARTAN 100 MG TABLET PO SCH (12:06)
[2017-05-02 08:30] VITALS: BP 157/75; PULSE 69; RESP 16; TEMP 96.3; O2SAT 99
[2017-05-02] MEDS: HYDRALAZINE 25 MG TABLET PO SCH (08:43)
[2017-05-02] MEDS: ASPIRIN *EC* 81 MG TABLET PO SCH (08:43)
[2017-05-02] MEDS: FLUoxetine 10 MG CAPSULE PO SCH (08:43)
[2017-05-02] MEDS: LOSARTAN 100 MG TABLET PO SCH (08:43)
--- NOTE | 2017-05-02 10:26 | Discharge Summary ---
Discharge Information Date of admission: 04/30/17 22:48 Anticipated date of discharge: 05/02/17 Attending Physician: Anupama Reed MD Primary care physician: Alejandro Rice MD Consults: None - Discharge Diagnosis (1) Hyponatremia Status: Acute Probable viral gastroenteritis with nausea, vomiting, diarrhea and abdominal pain-symptoms have resolved Hyponatremia likely secondary to recent viral gastroenteritis with poor by mouth intake Mild acute kidney injury-resolved Dehydration-resolved Hypokalemia Hypertension-chronic, stable Anxiety-doing well on Prozac - Procedures Procedures: none - Laboratory Labs: 05/02/17 03:56 05/02/17 03:56 Laboratory Tests 04/30/17 05/01/17 05/01/17 21:54 00:14 06:02 Sodium 115 L* Potassium 3.0 L 3.0 L Creatinine 1.5 H Ur Random Sodium 7 L 05/01/17 05/01/17 12:08 19:35 Sodium Potassium 3.2 L 4.2 D Creatinine Ur Random Sodium - Radiology Radiology: None History of Present Illness HPI: The pt has had a 5 days history of nausea and generalized abdominal pain that has been getting better over the last 24 hours. She states she has had several frequent loose stools 3 days ago but not over the past 48 hours, no fevers at home, but very poor PO intake, only drinking water for the past 4 days. She came to the Er on 04/29 and discharged with a dx of URI, went to see PCP this morning who thu labs and noted that her sodium was 116 and called the police to pick her up and bring her to the ER. Objective Vital signs: Temperature 96.3 F L 05/02/17 07:00 Pulse Rate 69 05/02/17 07:00 Respiratory Rate 16 05/02/17 07:00 Blood Pressure 157/75 H 05/02/17 07:00 Pulse Oximetry 99 05/02/17 07:00 Height/Weight/BMI: Height 1.65 m Weight 64.9 kg Body Mass Index 23.5 Hospital Course This is a general summary of the patient's hospital course. For more details refer to the complete medical record. Hospital course: The patient was admitted on the evening of 04/30/2017 with severe hyponatremia of 115 associated with some lightheadedness and mild confusion. She likely developed a hyponatremia secondary to a recent viral gastroenteritis with poor by mouth intake for several days other than some water. She had dehydration and mild acute kidney injury as well. The patient was treated with normal saline and oral potassium. Sodium improved gradually. On the morning of discharge sodium was 130. On the day prior to discharge, her appetite was very good and she was up and around and feeling well. On the day of discharge she states she feels back to normal and has no complaints. On exam, the patient is alert and oriented 3 and in no acute distress. Chest is clear auscultation. Cardio vascular reveals a regular rate and rhythm. Abdomen is soft and nontender. Extremities are free of edema. We'll dismiss to home today. I've asked her to follow at next week with Dr. Rice and get a basic metabolic profile at that time. She can eat a diet with a little extra salt over the next 2 days and then go back to her regular diet. I did instruct her that if she has problems in the future with nausea, vomiting, diarrhea and decreased by mouth intake, she should try to drink Gatorade or a similar electrolyte drink to try to prevent hyponatremia. If she should develop lightheadedness, severe fatigue or confusion she should seek medical attention quickly. Time spent with patient: discharge greater than 30 minutes Discharge Plan - Discharge Disposition Discharge Date: 05/02/17 Disposition: Discharged Home, Self-Care *Condition: Stable Reason For Visit (Visit label in EMR): hyponatremia - Discharge Medications *Discharge Medications: Continue Losartan [Cozaar] 100 mg PO DAILY FLUoxetine [Prozac] 10 mg PO DAILY Multivit-Min/FA/Lycopen/Lutein [Complete Multi 50+ Tablet] 1 each PO DAILY Ibuprofen 200 mg PO PRN PRN PRN Reason: Pain Metoprolol Succinate 100 mg PO QD #0 Hydralazine [Apresoline] 25 mg PO BID Aspirin *EC* [Ecotrin] 1 tab PO DAILY Acetaminophen 325 mg PO PRN PRN PRN Reason: Pain Changed Ondansetron Odt [Zofran Po] 4 mg PO Q6HR PRN #0 PRN Reason: Nausea - Discharge Packet/Instructions *Diet: Diet as tolerated, can add a little extra salt to your food for the next 2 days *Activity: As tolerated *Pain Management/Treatment: Tylenol or ibuprofen if needed *Wound Care: Not applicable *Expected Signs/Symptoms: If you have some mild nausea, you can take the contrast ondasterone/Zofran. *Notify Physician if: Seek medical attention if you have recurrence of uncontrolled vomiting or diarrhea or if you develop confusion, lightheadedness, or severe fatigue *During Business Hours Contact: [facility] *After Business Hours Contact: Call [phone] Rice or his partner paged *Pending Lab/Results: No Pending Lab - Referrals/Follow Up *Referrals/Follow Up: Alejandro Rice MD [Family Provider] - 1 Week - Patient Handouts Patient Handouts: Hyponatremia (GEN) - Dismissal Complete Discharge Instructions are:: Complete Physician Narrative - Narrative Attestation Narrative: Date: 05/02/17 Time: 102
== END 2017-05-02 11:20 | disposition home or self-care (01) | DRG 392 ==
LOC: ED 20:54 → SUATTDRO 22:48 → MED 22:48
PROVIDERS: ADMIT Internal Medicine; ATTEND Internal Medicine